=== PATIENT | female | born 1970 | race Two or more races ===

== ENCOUNTER 2020-05-28 10:45 | Inpatient (IN) | payer OTHER ==
[2020-06-15] MEDS ORDERED: ANTI-GAS166 MG PO (15:15)
[2020-06-15] MEDS ORDERED: CARAFATE1 GM PO (15:16)
[2020-06-15] MEDS ORDERED: PROTONIX40 MG PO (15:16)
== END 2020-06-15 15:53 | disposition home or self-care (01) | DRG 330 ==
LOC: O/R 06-04 07:21 → SURH 06-04 07:21
PROVIDERS: ADMIT Surgery; ATTEND Surgery
PROC: 0D1B4Z4 Bypass Ileum to Cutaneous, Percutaneous Endoscopic Approach (ICD-10-PCS; 2020-06-04)
PROC: 0DTP4ZZ Resection of Rectum, Percutaneous Endoscopic Approach (ICD-10-PCS; 2020-06-04)
PROC: 07TB4ZZ Resection of Mesenteric Lymphatic, Percutaneous Endoscopic Approach (ICD-10-PCS; 2020-06-04)
PROC: B24BYZZ Ultrasonography of Heart with Aorta using Other Contrast (ICD-10-PCS; 2020-06-04)
PROC: 0DBN4ZZ Excision of Sigmoid Colon, Percutaneous Endoscopic Approach (ICD-10-PCS; principal; 2020-06-04 09:00)
PROC: 02HV33Z Insertion of Infusion Device into Superior Vena Cava, Percutaneous Approach (ICD-10-PCS; 2020-06-09)
PROC: 4A12X4Z Monitoring of Cardiac Electrical Activity, External Approach (ICD-10-PCS; 2020-06-12)
DX: C20 Malignant neoplasm of rectum (principal); K91.89 Other postprocedural complications and disorders of digestive system; K56.7 Ileus, unspecified; K29.60 Other gastritis without bleeding; R00.0 Tachycardia, unspecified; F43.20 Adjustment disorder, unspecified

== ENCOUNTER 2020-11-19 10:15 | Inpatient (IN) | payer OTHER ==
[~2020-11-19] VITALS: Ht 167.6 cm; Wt 74.8 kg
[~2020-11-19 10:15] MED LIST: ANTI-GAS166 MG PO; CARAFATE1 GM PO; PROTONIX40 MG PO
[2020-11-19] MEDS ORDERED: PROPRANOLOL HCL10 MG PO (14:21)
[2020-11-29] MEDS ORDERED: PROTONIX40 MG PO (12:23)
[2020-11-29] MEDS ORDERED: HYOSCYAMINE0.125 M1 SL (12:23)
[2020-11-29] MEDS ORDERED: ULTRACET PO (12:23)
== END 2020-11-29 16:03 | disposition home or self-care (01) | DRG 330 ==
LOC: SURH 11-26 09:48 → O/R 11-26 09:48 → SURH 11-26 10:15
PROVIDERS: ADMIT Surgery; ATTEND Surgery
PROC: 0DBB0ZZ Excision of Ileum, Open Approach (ICD-10-PCS; principal; 2020-11-26 10:45)
DX: C20 Malignant neoplasm of rectum (principal); R59.0 Localized enlarged lymph nodes; K62.5 Hemorrhage of anus and rectum; Z20.822 Contact with and (suspected) exposure to COVID-19